=== PATIENT | female | born 1965 | race Caucasian/White ===

== ENCOUNTER 2025-10-18 13:57 | Emergency (ER) | payer BC, SELFPAY ==
[2025-10-18 14:27] LABS: Urine Character Clear (Clear)
[2025-10-18 14:32] LABS: Hematocrit 41.1 % (37.0-47.0); Hemoglobin 13.8 g/dL (12.0-16.0); Mean Corp Hgb Conc. 33.6 g/dL (33.0-37.0); Mean Corpuscular Volume 88.2 fL (81.0-99.0); Nucleated Red Blood Cells % 0 %; Platelet Count 367 10^3/uL (130-400); Red Cell Dist. Width 12.6 % (11.5-14.5)
[2025-10-18 14:46] LABS: ALT (SGPT) 18 U/L (0-35); AST (SGOT) 22 U/L (14-36); Albumin 4.9 g/dl (3.5-5.0); Alkaline Phosphatase 75 U/L (38-126); Blood Urea Nitrogen 12 mg/dl (7-17); Calcium 9.8 mg/dl (8.4-10.2); Carbon Dioxide 28 mmol/L (22-30); Chloride 105 mmol/L (98-107); Glucose 108 mg/dl (70-99); Lipase 128 U/L (23-300); Potassium 3.9 mmol/L (3.5-5.1); Sodium 141 mmol/L (135-145); Total Protein 7.9 g/dl (6.3-8.2); Urine Squamous Cell 0-2 /LPF (Few); eGFR > 60.00
[2025-10-18 14:47] LABS: Urine Red Blood Cell 0-2 /HPF (0-2); Urine White Cell 0-2 /HPF (0-5)
[2025-10-18] MEDS: NSS 1000 IV (16:47)
[2025-10-18] MEDS: PROTONIX IV 40 MG IV (16:48)
[2025-10-18] MEDS: TYLENOL 650 MG PO (16:48)
--- NOTE | 2025-10-18 18:26 | ED.GENMED ---
History of Present Illness
General
Chief Complaint: Abdominal Pain
Source: patient
Exam Limitations: none
Time Seen by Provider: 10/18/25 16:23
Nursing documentation reviewed up to this point in time: agreed with
History of Present Illness
History of Present Illness:
Patient presents to ED secondary to worsening left-sided abdominal pain over the past 6 days, along with intermittent loose bowel movements. Denies fever or chills. Denies trauma. Patient reports intermittent nausea sensation without vomiting.
Patient has had history of kidney stones in the past, but states her symptoms are different. Abdominal pain described as sharp/crampy, without any alleviating or exacerbating factors. Denies recent travel. Denies recent change in medications or
diet. Denies sick contact.
Past History
Past History
ED Past Medical History: GERD and Other (Mild scleroderma)
Social History
Tobacco: Non-smoker
Alcohol: Occasional
Drug: None
Personal:
Living: with family
Review of Systems
Review of Systems
Allergies reviewed?: Yes
All Other Systems: ROS reviewed and negative except as documented in HPI and ROS
Constitutional: Reports no symptoms; Denies fever
ABD/GI: Reports abdominal pain, nausea and diarrhea; Denies vomiting
Musculoskeletal: Reports no symptoms
Skin: Reports no symptoms
Neurological: Reports no symptoms
Phy Exam
Physical Exam
Physical Exam:
Physical Exam
General: mild distress, not acutely ill. afebrile
Head: nc/at. eomi
Neck: supple. no meningeal signs.
Heart: s1/s2 regular rate and rhythm
Lungs: no acute respiratory distress. clear bilaterally
Abdomen: normal bowel sounds. no distention. mild LLQ tenderness to palpation
Neuro: alert and oriented x 3. no focal neurological deficits
Skin: no rash
Psychiatric: well kept. interactive and cooperative
Extremities: no edema. no calf tenderness.
Course
Orders/Labs/Results
Orders:
Orders
10/18/25 14:20
Complete Blood Count/With Diff Urgent
Comprehensive Metabolic Panel Urgent
Lipase Urgent
Urinalysis Reflex To Culture Urgent
Date Specimen was Collected: 10/18/25
Time Specimen was Collected: 14:15
Urine Microscopic Reflex Cult Urgent
Urine Culture Urgent
JAYME Source: U
Specimen Description:
Date Specimen was Collected: 10/18/25
Time Specimen was Collected: 14:15
10/18/25 16:32
0.9% Sodium Chloride 1000 ml [Nss] 1,000 ml IV BOLUS
Acetaminophen [Tylenol] 650 mg PO NOW STA
Pantoprazole [Protonix IV] 40 mg IV NOW STA
10/18/25 16:33
CT Abd/pelvis W Iv Cont Urgent
Comment:
Reason For Exam: LLQ pain
Abnormal Lab Results
10/18/25
14:20
Abs Immat Gran (auto) 0.1 H 10^3/uL
(0-0.05)
Absolute Neuts (auto) 6.7 H 10^3/uL
(1.4-6.5)
Immature Gran % 0.8 H %
(0-0.5)
Glucose 108 H mg/dl
(70-99)
Leukocyte Esterase Rfl 1+ A
(Negative)
Urine Albumin (Reflex) 1+ A
(Neg - Trace)
10/18/25 14:20
10/18/25 14:20
Vital Signs
Initial and Last Documented VS:
Initial Vital Signs
Temp Pulse Resp Pulse Ox
98.2 F 98 16 98
10/18/25 14:11 10/18/25 14:11 10/18/25 14:11 10/18/25 14:11
Last Documented Vital Signs
Temp Pulse Resp BP Pulse Ox
98.2 F 80 18 151/85 97
10/18/25 14:11 10/18/25 19:45 10/18/25 19:45 10/18/25 19:45 10/18/25 19:45
MDM/Problems Addressed
MDM/Problems Addressed:
Patient with an unremarkable workup in ED, including blood work and CT abdomen pelvis. Patient otherwise remains afebrile, hemodynamically stable, and nontoxic-appearing. Patient presenting symptoms nonspecific abdominal pain, may be viral versus
gastritis versus early colitis. Patient states that she already has an appointment with her GI physician. As such, decision made to discharge patient home with copy of CT report and CT scan on a disk, to be reviewed and discussed with her GI
physician. Advised return to ED with worsening symptoms, i.e. fever/worsening pain/vomiting.
*Pulse Oximetry
SaO2: 98
Oxygen Mode of Delivery: Room air
Patient hypoxic: no
*Critical Care Note
Total Time (30-74mins, 75-104mins- exclusive of procedures): Not Applicable
ED Attending Note
-
Portions of this chart may have been created with voice recognition software.� Occasional wrong word or��sound alike� substitutions may have occurred due to the inherent limitations of voice recognition software.
Discharge Plan
Departure
Patient Disposition: Home (Routine Discharge)
Date of Disposition: 10/18/25
Time of Disposition: 19:35
Patient with high blood pressure during this ER visit?: Yes
Condition: Fair
Discharge Problem:
Abdominal pain
Instructions: Abdominal Pain
Prescriptions:
No Action
dexlansoprazole [Dexilant] 30 MG capsule,biphase delayed releas
30 mg PO DAILY
Referrals:
Irene Treadwell DO [Family Provider, Family Practice]
Activity Restrictions/Additional Instructions:
As discussed, please follow-up with your primary care physician and/or GI physician for reevaluation. Please consider return to ED with worsening symptoms, i.e. fever/worsening pain/vomiting.
Interventions
Interventions:
*Risk Screen - Suicide Last Done: 10/18/25 13:59
*General Assessment Last Done: 10/18/25 14:11
*Neglect/Abuse Screening Last Done: 10/18/25 13:59
*ED COVID-19 Vaccine History Last Done: 10/18/25 14:11
*ED Influenza Vaccine History Last Done: 10/18/25 14:11
[facility] Fall Risk Assessment Tool Last Done: 10/18/25 16:53
*Nursing Disposition Last Done: 10/18/25 19:45
OP-Uuurkj-Jkvpezsvbx Assessment Last Done: 10/18/25 16:53
Discharge Date and Time
Discharge Date/Time: 10/18/25 19:45
Print Language: NOR[place]GI[place]
[2025-10-18 19:45] VITALS: BP 151/85
== END 2025-10-18 19:45 | disposition home or self-care (01) ==
LOC: EMR 13:57
PROVIDERS: EMERGENCY PHYSICIAN Emergency Medicine; FAMILY PHYSICIAN Family Medicine
DX: R10.32 Left lower quadrant pain (principal); R03.0 Elevated blood-pressure reading, without diagnosis of hypertension; K21.9 Gastro-esophageal reflux disease without esophagitis; M34.9 Systemic sclerosis, unspecified; Z87.442 Personal history of urinary calculi
CPT/HCPCS: 99284; 96374; 74177; 80053; 81003; 81015; 83690; 85025; 87086; Q9967